=== PATIENT | female | born 1955 | race Caucasian/White ===

== ENCOUNTER → 2016-12-22 | Outpatient (CLI) | payer BC ==
[~2016-12-22] MED LIST: CIPR250T27; GLIP5TAB10 PO; INSU100C SQ-INSULIN; INSU100I13 SQ-INSULIN; INSU100V8 SQ; LINA5TAB PO; LISI1TAB3 PO; LISI5TAB7 PO; METO10TA82 PO; OMEP20CA9 PO; OMEP20TA62 PO; ONDA4TAB7; OXYC-302; [UNRECOGNIZED DRUG - OTHER] TD
== END | disposition home or self-care (01) ==
LOC: CFH 07:31
PROVIDERS: ATTEND Nurse Practitioner Family
DX: R10.12 Left upper quadrant pain (principal); Z90.49 Acquired absence of other specified parts of digestive tract
CPT/HCPCS: 76700

== ENCOUNTER → 2017-04-05 | Outpatient (CLI) | payer BC | END | disposition home or self-care (01) | LOC: CFH 11:56 | PROVIDERS: ATTEND Nurse Practitioner Family | DX: Z12.31 Encounter for screening mammogram for malignant neoplasm of breast (principal); Z13.820 Encounter for screening for osteoporosis; N95.8 Other specified menopausal and perimenopausal disorders | CPT/HCPCS: 77080; G0202 ==